=== PATIENT | female | born 1990 | race Two or more races ===

== ENCOUNTER 2018-02-15 13:05 | Emergency (ER) | payer BC ==
[~2018-02-15] VITALS: Ht 157.5 cm; Wt 56.7 kg
--- NOTE | 2018-02-15 13:34 | NUR ---
PT SEEN & EVAL'D BY DR. AMADO. PT BIB SELF C/O CHEST PAIN LAST NIGHT AND THIS AM, PAIN FREE NOW. DENIES CP, SOB, DIZZINESS, N/V, ARM/JAW PAIN @ THIS TIME. ON MONITOR, NSR, NO ECTOPY NOTED. WILL CONT TO MONITOR.
[2018-02-15 13:48] VITALS: BP 124/76
--- NOTE | 2018-02-15 13:50 | NUR ---
Patient discharged to home in stable condition. Written and verbal after care instructions given. Patient verbalizes understanding of instruction.
== END 2018-02-15 13:44 | disposition home or self-care (01) ==
LOC: ER 13:11
DX: R07.89 Other chest pain (principal); F10.10 Alcohol abuse, uncomplicated; Y90.9 Presence of alcohol in blood, level not specified
CPT/HCPCS: 93005; 99283; A4606; Z7610

== ENCOUNTER 2018-07-14 04:16 | Emergency (ER) | payer BC ==
[~2018-07-14] VITALS: Ht 160 cm; Wt 52.2 kg
--- NOTE | 2018-07-14 04:36 | NUR ---
PT PRESENTED TO THE ER WITH A C/O INTERMITTENT MID-STERNAL CP THAT IS SHARP AND TIGHT AND STARTED 2 HRS BASE BRANDER. PT C/O PAIN 12/14. PT STATED THAT SHE TOOK 3 CAFFINE PILLS TO STAY AWAKE, SHE LIKE TO STAY UP LATE AND WAKE UP LATE. "THAT IS MY PREFERRED SCHEDULE". PT IS SLIGHTLY TACHY ON THE MONITOR WITH HR 108. PT'S RESP ARE EVEN AND UNLABORED. SKIN WARM AND DRY. NO S/S OF DISTRESS. PT STATED THAT HER LEFT WRIST HURTS WHEN SHE GETS THE SHARP/TIGHT PAIN. PT APPEARS TIRED.
--- NOTE | 2018-07-14 04:38 | NUR ---
DR. JUDD IS AT THE BEDSIDE EVALUATING THE PT.
[2018-07-14] MEDS ORDERED: NORE1TAB21 PO (04:41)
[2018-07-14] MEDS ORDERED: BUPR200T2 PO (04:41)
[2018-07-14] MEDS ORDERED: GABA-534 PO (04:41)
[2018-07-14] MEDS ORDERED: TRAZ-214 PO (04:41)
[2018-07-14] MEDS ORDERED: LAMO150T PO (04:41)
[2018-07-14] MEDS ORDERED: LISD60CA PO (04:41)
[2018-07-14] MEDS ORDERED: DONE10TA44 PO (04:41)
--- NOTE | 2018-07-14 04:55 | NUR ---
20G IV STARTED IN RAC. BLOOD WAS DRAWN AND SENT TO LAB. PT AMBULATED TO THE BATHROOM WITH A STEADY GAIT TO GIVE A URINE SAMPLE.
[2018-07-14] MEDS ORDERED: ACETAMINOPHEN ES 500 MG TABLET ONE (04:56)
[2018-07-14] MEDS ORDERED: NITROGLYCERIN PACKET 1 GM PACKET ONE (04:57)
[2018-07-14] MEDS ORDERED: ASPIRIN 81 MG TAB.CHEW ONE (04:57)
[2018-07-14] MEDS ORDERED: IV NS 0.9% 1,000 ML BAG IV ONE (05:00)
[2018-07-14] MEDS ORDERED: NITROGLYCERIN PACKET 1 GM PACKET TD ONE (05:00)
[2018-07-14] MEDS ORDERED: ACETAMINOPHEN ES 500 MG TABLET PO ONE (05:00)
[2018-07-14] MEDS ORDERED: ASPIRIN 81 MG TAB.CHEW PO ONE (05:00)
[2018-07-14 05:04] LABS: BASOPHILS # (AUTO) 0.1 /CMM (0.0-0.2); BASOPHILS % (AUTO) 0.8 % (0.0-2.0); HEMATOCRIT 38 % (33-45); HEMOGLOBIN 12.8 g/dL (11.5-14.8); LYMPHOCYTES % (AUTO) 34.8 % (20.0-44.0); MEAN CORPUSCULAR HGB CONC 33 g/dl (31.0-36.0); MEAN CORPUSCULAR VOLUME 86 fL (82-100); MONOCYTES # (AUTO) 0.6 /CMM (0.1-1.30); MONOCYTES % (AUTO) 7.5 % (2.0-12.0); NEUTROPHILS # (AUTO) 4.8 /CMM (1.8-8.9); NEUTROPHILS % (AUTO) 55.9 % (43.0-81.0); PLATELET COUNT (AUTO) 323 /CMM (150-450); RED BLOOD CELL COUNT(AUTO) 4.44 MIL/uL (4.0-5.2); WHITE BLOOD COUNT (AUTO) 8.5 K/uL (4.3-11.0)
--- NOTE | 2018-07-14 05:07 | NUR ---
PT REC'D MEDICATION ORDERED. PT WAS C/O FEELING VERY COLD ON RUE. PT REC'D WARM BLANKETS WRAPPING HER RUE AND TORSO. PT APPEARS TO BE RESTING COMFORTABLY. RESP EVEN AND UNLABORED. VSS. HR 80. WILL CONTINUE TO MONITOR THE PT.
[2018-07-14 05:15] LABS: CALCIUM, SERUM 9.6 mg/dL (8.5-10.1); CARBON DIOXIDE 30 mmol/L (21-32); CHLORIDE 99 mmol/L (98-107); CREATININE 0.8 mg/dL (0.6-1.3); GLUCOSE 85 mg/dL (74-106); POTASSIUM 3.5 mmol/L (3.5-5.1); SODIUM SERUM 138 mmol/L (136-145); UREA NITROGEN, BLOOD 14 mg/dL (7-18)
[2018-07-14 05:27] LABS: ALANINE AMINOTRANSFERASE 30 U/L (12-78); ALBUMIN 4.2 g/dL (3.4-5.0); ALKALINE PHOSPHATASE 74 U/L (46-116); ASPARTATE AMINOTRANSFERASE 19 U/L (15-37); B-TYPE NATRIURETIC PEPTIDE 19 PG/ML (0-125); BILIRUBIN,DIRECT 0.1 mg/dL (0.0-0.2); BILIRUBIN,TOTAL 0.2 mg/dL (0.2-1.0); TOTAL PROTEIN, SERUM 7.9 g/dL (6.4-8.2)
--- NOTE | 2018-07-14 05:45 | NUR ---
PT APPEARS TO BE RESTING COMFORTABLY WITH NO S/S OF PAIN OR DISTRESS.
--- NOTE | 2018-07-14 06:38 | NUR ---
CALLED DIETARY AND ORDERED A BREAKFAST.
--- NOTE | 2018-07-14 06:45 | NUR ---
PT AMBULATED TO THE BATHROOM WITH A STEADY GAIT.
--- NOTE | 2018-07-14 06:50 | NUR ---
PT RETURNED TO ER BED #2 AND WAS RECONNECTED TO THE MONITOR AND CONTINUOUS PULSE OX.
--- NOTE | 2018-07-14 07:16 | NUR ---
REPORT GIVEN TO NAHUN PALM FOR [facility].
[2018-07-14 08:28] VITALS: BP 100/55
--- NOTE | 2018-07-14 08:32 | NUR ---
Patient discharged to home in stable condition. Written and verbal after care instructions given. Patient verbalizes understanding of instruction.IV removed. Catheter intact and site benign. Pressure and 4x4 applied to site. No bleeding noted.
== END 2018-07-14 08:30 | disposition home or self-care (01) ==
LOC: ER 04:17
DX: R07.89 Other chest pain (principal); R41.3 Other amnesia; I25.2 Old myocardial infarction; F31.9 Bipolar disorder, unspecified; F90.9 Attention-deficit hyperactivity disorder, unspecified type; I46.9 Cardiac arrest, cause unspecified; F14.10 Cocaine abuse, uncomplicated; F10.10 Alcohol abuse, uncomplicated; F15.10 Other stimulant abuse, uncomplicated; Y90.9 Presence of alcohol in blood, level not specified; Z96.662 Presence of left artificial ankle joint
CPT/HCPCS: 36415; 71045; 80048; 80076; 80305; 83880; 84484 ×2; 84703; 85025; 85378; 93005; 99284; A4606; J7030; Z7610

== ENCOUNTER 2020-04-19 08:51 | Emergency (ER) | payer BC ==
[~2020-04-19] VITALS: Ht 157.5 cm; Wt 54.4 kg
[~2020-04-19 08:51] MED LIST: BUPR200T2 PO; DONE10TA44 PO; GABA-534 PO; LAMO150T6 PO; LISD60CA PO; NORE1TAB21 PO; TRAZ-257 PO
[2020-04-19] MEDS ORDERED: MAG HYDROX/AL HYDROX/SIMETH 30 ML UDC PO ONE (09:00)
[2020-04-19] MEDS ORDERED: LIDOCAINE VISCOUS 2% UD 15 ML UDC MM ONE (09:00)
[2020-04-19] MEDS ORDERED: MAG HYDROX/AL HYDROX/SIMETH 30 ML UDC ONE (09:28)
[2020-04-19] MEDS ORDERED: LIDOCAINE VISCOUS 2% UD 15 ML UDC ONE (09:29)
[2020-04-19 09:39] LABS: BASOPHILS # (AUTO) 0.1 /CMM (0.0-0.2); EOSINOPHILS % (AUTO) 3.2 % (0.0-6.0); HEMATOCRIT 29 % (33-45); HEMOGLOBIN 9.7 g/dL (11.5-14.8); LYMPHOCYTES % (AUTO) 29.6 % (20.0-44.0); MEAN CORPUSCULAR HGB CONC 34 g/dl (31.0-36.0); MEAN CORPUSCULAR VOLUME 91 fL (82-100); MONOCYTES # (AUTO) 0.6 /CMM (0.1-1.30); MONOCYTES % (AUTO) 8.3 % (2.0-12.0); NEUTROPHILS # (AUTO) 3.9 /CMM (1.8-8.9); NEUTROPHILS % (AUTO) 57.9 % (43.0-81.0); PLATELET COUNT (AUTO) 288 /CMM (150-450); RED BLOOD CELL COUNT(AUTO) 3.18 MIL/uL (4.0-5.2); WHITE BLOOD COUNT (AUTO) 6.7 K/uL (4.3-11.0)
[2020-04-19 09:49] LABS: ACETAMINOPHEN 14 ug/ml (10-30); ALANINE AMINOTRANSFERASE 27 U/L (12-78); ALBUMIN 3.2 g/dL (3.4-5.0); ALCOHOL, BLOOD < 3 mg/dL (0-0); ALKALINE PHOSPHATASE 49 U/L (46-116); ASPARTATE AMINOTRANSFERASE 25 U/L (15-37); BILIRUBIN,DIRECT 0.1 mg/dL (0.0-0.2); BILIRUBIN,TOTAL 0.2 mg/dL (0.2-1.0); CALCIUM, SERUM 8.6 mg/dL (8.5-10.1); CARBON DIOXIDE 30 mmol/L (21-32); CHLORIDE 106 mmol/L (98-107); GLUCOSE 94 mg/dL (74-106); POTASSIUM 4.1 mmol/L (3.5-5.1); SODIUM SERUM 145 mmol/L (136-145); UREA NITROGEN, BLOOD 14 mg/dL (7-18)
--- NOTE | 2020-04-19 10:03 | NUR ---
PATIENT BROUGHT IN TO HOSPITAL D/T TAKING "HANDFUL OF IBUPROFEN 200MG AND TRAZODONE" AT AROUND 0330. SI EARLIER, C/O EPIGASTRIC PAIN. DENIES SI/HI AT THIS PRESENT TIME. SATING WELL ON ROOM AIR, BREATHING EVEN AND UNLABORED. NO SIGNS OF ACUTE DISTRESS NOTED AT THIS TIME.
[2020-04-19 10:13] LABS: BILIRUBIN,URINE NEGATIVE (NEGATIVE); BLOOD, URINE NEGATIVE Ery/uL (NEGATIVE); COLOR,URINE YELLOW (YELLOW); KETONES,URINE TRACE (NEGATIVE); LEUKOCYTE ESTERASE ,URINE NEGATIVE (NEGATIVE); NITRITE, URINE NEGATIVE (NEGATIVE); PROTEIN,URINE NEGATIVE (NEGATIVE); UGLUCOSE NEGATIVE (NEGATIVE); UROBILINOGEN,URINE 0.2 EU/dL (0.2)
[2020-04-19] MEDS ORDERED: IV NS 0.9% 1,000 ML IV ONE ×2 (10:30→11:00)
[2020-04-19 10:37] LABS: APPEARANCE,URINE SLIGHTLY HAZY (CLEAR)
--- NOTE | 2020-04-19 10:41 | NUR ---
PATIENT RESTING AT THIS TIME. VITALS STABLE.
--- NOTE | 2020-04-19 11:15 | NUR ---
ANDREW YUNW CALLED FOR EVAL
[2020-04-19 11:18] LABS: BACTERIA,URINE Rare /HPF (None Seen); RBC,URINE NONE SEEN /HPF (0-2); SQUAMOUS EPITHELIAL CELL,UR Rare /HPF (None Seen); URINE AMORPHOUS PHOSPHATES Moderate /HPF (None Seen); WBC,URINE 0-2 /HPF (0-3)
--- NOTE | 2020-04-19 11:42 | NUR ---
This SW called Mayda Olsen [facility] Core Drilling Supervisor to evaluate this patient as patient refused voluntary treatment to this SW. Addendum: 04/19/20 at 1145 by LASHELL PASTOR SW ETA 15 minutes
--- NOTE | 2020-04-19 11:55 | NUR ---
LASHELL AT BEDSIDE FOR EVAL.
--- NOTE | 2020-04-19 12:50 | NUR ---
SW met with the patient at bed side. When this SW arrived, patient was staring at the ceiling but was responsive to name and turned her head to make direct contact with this SW. Patient is a 30-year-old female. Patient is alert and oriented x4. Patient confirmed date of , social security number, address, emergency contact and insurance information on face sheet. 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 Patient reports that she has been actively working during COVID-19 pandemic. Patient reports that recently she has been drinking alcohol more frequently. Per patient, her alcohol consumption can vary from one drink a night to an entire bottle of wine. Patient reports that this alcohol consumption has been more frequent due to eating disorder struggle, anxiety, and gaining weight. Patient also reports that when she drinks alcohol, she also smokes cigarettes. Per patient, she can smoke 3-4 buds a day and sometimes half a pack. Patient reports that she has a therapist that she speaks to approximately once a week. However, over the last two weeks she has not spoken to her therapist as the therapist is on vacation. Patient reports if its really necessary she said I can call her, but I didnt because I didnt feel like it was necessary. Patient reports that she has seen a psychiatrist in the past but reports that she does not meet with the psychiatrist frequently. Per patient, the psychiatrist made a diagnosis of anxiety and depression and patients primary care provider follows up with medication based on the patients psychiatrist recommendations. Patient reports suicidal ideation from last night. Per patient, she took a handful of pills but did not want to report names of medications to this SW. Patient denies auditory and visual hallucinations. Patient denies homicidal ideation. This SW and patient discussed treatment plan including voluntary psychiatric treatment. Patient does not want voluntary treatment. SW will call [employer] Supervisor ground operations superintendent MANDEEP Nunes to evaluate this patient per overdose protocol. SW informed HEARING OFFICERNAHUN Zamora about this plan and HEARING OFFICERNAHUN Zamora in agreement.
--- NOTE | 2020-04-19 13:20 | NUR ---
PATIENT WAS SEEN AND EVALUATED BY ALBERT FROM [facility].
--- NOTE | 2020-04-19 13:35 | NUR ---
PATIENT A/OX4, BREATHING EVEN AND UNLABORED, DENIES SI/HI, AMBULATORY WITH STEADY GAIT. NO DISTRESS NOTED.
--- NOTE | 2020-04-19 14:04 | NUR ---
Patient discharged to home in stable condition. Written and verbal after care instructions given. Patient verbalizes understanding of instruction. IV removed. Catheter intact and site benign. Pressure and 4x4 applied to site. No bleeding noted.
[2020-04-19 14:06] VITALS: BP 141/86
== END 2020-04-19 14:11 | disposition home or self-care (01) ==
LOC: ER 08:55
DX: T39.311A Poisoning by propionic acid derivatives, accidental (unintentional), initial encounter (principal); T43.211A Poisoning by selective serotonin and norepinephrine reuptake inhibitors, accidental (unintentional), initial encounter; R10.13 Epigastric pain; F17.210 Nicotine dependence, cigarettes, uncomplicated; I25.2 Old myocardial infarction; F41.9 Anxiety disorder, unspecified; F32.9 Major depressive disorder, single episode, unspecified; F90.9 Attention-deficit hyperactivity disorder, unspecified type; Z98.890 Other specified postprocedural states; Z79.899 Other long term (current) drug therapy; Y92.89 Other specified places as the place of occurrence of the external cause
CPT/HCPCS: 36415; 80048; 80076; 80299; 80307 ×2; 80320; 81001; 85025; 93005; 96360; 99284; 99406; J7030; 81000-TC; G0480